=== PATIENT | female | born 2000 | race Hispanic/Latino ===

== ENCOUNTER 2023-04-07 16:20 | Emergency (ER) | payer OTHER ==
[~2023-04-07] VITALS: Ht 157.5 cm; Wt 78.9 kg
[2023-04-07] MEDS ORDERED: SODIUM CHLORIDE 0.9% 1000ML 1,000 ML IV SCH (17:30)
[2023-04-07] MEDS ORDERED: ACETAMINOPHEN 325 MG TAB PO ONE (17:30)
[2023-04-07] MEDS ORDERED: SODIUM CHLORIDE 0.9% 1000ML 1,000 ML ONE (17:37)
[2023-04-07] MEDS ORDERED: CEFTRIAXONE 1 GM VIAL ONE (17:37)
[2023-04-07] MEDS ORDERED: ACETAMINOPHEN 325 MG TAB ONE (17:37)
[2023-04-07] MEDS ORDERED: SODIUM CHLORIDE 0.9% 1000ML 1,000 ML IV ONE (18:30)
[2023-04-07 18:50] VITALS: O2SAT 100
[2023-04-07] MEDS ORDERED: DICLOXACILLIN500 MG PO (19:04)
== END 2023-04-07 19:25 | disposition home or self-care (01) ==
LOC: FSED 16:24
DX: R51.9 Headache, unspecified (principal); N61.0 Mastitis without abscess; E86.0 Dehydration; D72.829 Elevated white blood cell count, unspecified
CPT/HCPCS: 71046; 80053; 81003; 85025; 87400; 99283; J0696; J7030